=== PATIENT | female | born 1945 | race Caucasian/White ===

== ENCOUNTER → 2016-09-23 | Outpatient (CLI) | payer OTHER, MEDICARE | LOC: BRMIMAGING 14:54 | PROVIDERS: ATTEND Physician Assistant Medical | DX: Z13.820 Encounter for screening for osteoporosis (principal); M81.0 Age-related osteoporosis without current pathological fracture; Z78.0 Asymptomatic menopausal state ==

== ENCOUNTER → 2016-12-28 | Outpatient (CLI) | payer OTHER, MEDICARE | LOC: BHFA 13:00 | PROVIDERS: ATTEND Internal Medicine Cardiovascular Disease | DX: I35.1 Nonrheumatic aortic (valve) insufficiency (principal); I10 Essential (primary) hypertension ==

== ENCOUNTER → 2017-01-05 | Outpatient (CLI) | payer OTHER, MEDICARE | LOC: BHFA 14:00 | PROVIDERS: ATTEND Internal Medicine Cardiovascular Disease | DX: I35.1 Nonrheumatic aortic (valve) insufficiency (principal) ==

== ENCOUNTER 2018-06-14 12:55 | Emergency (ER) | payer OTHER, MEDICARE ==
[2018-06-14] MEDS ORDERED: DIAZEPAM 2 MG TAB PO ONE (13:02)
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
[2018-06-14 14:49] VITALS: BP 141/78
== END 2018-06-14 14:48 | disposition home or self-care (01) ==
LOC: EDUNIT#
DX: S16.1XXA Strain of muscle, fascia and tendon at neck level, initial encounter (principal); I10 Essential (primary) hypertension; E78.00 Pure hypercholesterolemia, unspecified; V89.2XXA Person injured in unspecified motor-vehicle accident, traffic, initial encounter; Y92.9 Unspecified place or not applicable; Y93.9 Activity, unspecified; Z90.13 Acquired absence of bilateral breasts and nipples; Z85.820 Personal history of malignant melanoma of skin

== ENCOUNTER → 2018-11-07 | Outpatient (CLI) | payer OTHER, MEDICARE | LOC: EMCIMAGING 08:57 | PROVIDERS: ATTEND Physician Assistant Medical | DX: M81.0 Age-related osteoporosis without current pathological fracture (principal); M85.80 Other specified disorders of bone density and structure, unspecified site | CPT/HCPCS: 77080-PN ==